=== PATIENT | female | born 1995 ===

== ENCOUNTER 2023-12-16 04:47 | Day surgery (SDC) | payer OTHER | END 2023-12-16 11:45 | disposition home or self-care (01) | LOC: JASU-ENDO 04:47 | PROVIDERS: ATTEND Internal Medicine Gastroenterology | PROC: 0DB68ZX Excision of Stomach, Via Natural or Artificial Opening Endoscopic, Diagnostic (ICD-10-PCS; 2023-12-16) | PROC: 0DB48ZX Excision of Esophagogastric Junction, Via Natural or Artificial Opening Endoscopic, Diagnostic (ICD-10-PCS; 2023-12-16) | PROC: 0DB98ZX Excision of Duodenum, Via Natural or Artificial Opening Endoscopic, Diagnostic (ICD-10-PCS; principal; 2023-12-16 11:11) | DX: K29.70 Gastritis, unspecified, without bleeding (principal) | CPT/HCPCS: 81025; 88305-TC; 88342-TC ==